=== PATIENT | female | born 1945 | race Caucasian/White ===

== ENCOUNTER 2022-02-24 11:30 | Outpatient (CLI) | payer SELFPAY ==
[2022-02-24 18:11] LABS: Chloride* 95 mmol/L (96-114); Sodium* 137 mmol/L (135-149)
[2022-02-24 18:12] LABS: Potassium* 3.4 mmol/L (3.6-5.1)
[2022-02-24 18:14] LABS: Blood Urea Nitrogen* 22 mg/dL (7-30); Carbon Dioxide* 34 mmol/L (20-32); Cholesterol* 148 mg/dL (90-199); Creatinine* 0.7 mg/dL (0.5-1.5); Estimated Glomerular Filt Rate 89 ml/min
[2022-02-24 18:15] LABS: Calcium* 9.9 mg/dL (8.4-10.6); Glucose* 106 mg/dL (60-115); HDL Cholesterol* 71 mg/dL (>=50); LDL Cholesterol Calculated 52 mg/dL (<100); Triglycerides* 125 mg/dL (40-149)
== END 2022-02-24 11:31 | disposition home or self-care (01) ==
PROVIDERS: PCP Family Medicine; Visit Provider Family Medicine
DX: I10 Essential (primary) hypertension (principal); E78.5 Hyperlipidemia, unspecified; E66.9 Obesity, unspecified
CPT/HCPCS: 80048; 80061

== ENCOUNTER 2022-03-17 10:41 | Outpatient (CLI) | payer MEDICARE, BC, SELFPAY | END 2022-03-17 10:42 | disposition home or self-care (01) | LOC: CT 10:43 | PROVIDERS: PCP Family Medicine; Visit Provider Orthopaedic Surgery Sports Medicine | DX: M19.012 Primary osteoarthritis, left shoulder (principal) | CPT/HCPCS: 73200 ==

== ENCOUNTER 2022-04-08 11:08 | Outpatient (CLI) | payer MEDICARE, BC, SELFPAY ==
[2022-04-08 17:44] LABS: Chloride* 91 mmol/L (96-114)
[2022-04-08 17:45] LABS: Potassium* 3.4 mmol/L (3.6-5.1); Sodium* 134 mmol/L (135-149)
[2022-04-08 17:47] LABS: Creatinine* 0.6 mg/dL (0.5-1.5); Estimated Glomerular Filt Rate 92 ml/min
[2022-04-08 17:48] LABS: Blood Urea Nitrogen* 18 mg/dL (7-30); Carbon Dioxide* 32 mmol/L (20-32); Glucose* 95 mg/dL (60-115)
== END 2022-04-08 11:09 | disposition home or self-care (01) ==
LOC: LONREF 11:09
PROVIDERS: PCP Family Medicine; Visit Provider Family Medicine
DX: Z01.818 Encounter for other preprocedural examination (principal)
CPT/HCPCS: 80048

== ENCOUNTER 2022-04-28 07:21 | Day surgery (SDC) | payer MEDICARE, BC, SELFPAY ==
[2022-04-28] VITALS (25 sets, daily range): BP systolic 99–143; BP diastolic 48–70; PULSE 62–80; RESP 16; TEMP 36.3–36.9; O2SAT 92–100; BMI 35.1
[2022-04-28] MEDS: LACTATED RINGERS 1000 ML 1,000 ML 100 ML IV ×2 (08:00→09:38)
[2022-04-28] MEDS: SODIUM CHLORIDE 0.9 % (FLUSH) 10 ML SYRINGE IVF (08:35)
[2022-04-28] MEDS: OXYCODONE (CR) 10 MG TAB.ER.12H PO (08:45)
[2022-04-28] MEDS: ACETAMINOPHEN 500 MG TABLET 1000 MG PO ×3 (08:45→23:45)
[2022-04-28] MEDS: CELECOXIB 200 MG CAPSULE PO (08:45)
[2022-04-28] MEDS: fentaNYL 100 MCG/2 ML inj IVP (08:50)
[2022-04-28] MEDS: MIDAZOLAM HCL 1 MG/ML inj IVP (08:50)
--- NOTE | 2022-04-28 08:55 | SUR.PREOP ---
TIME?OUT:?0845 PT/RN/MDA?VERIFICATION?OF?SURGICAL?SITE,?PROCEDURE,?AND?CONSENT OBTAINED?PRIOR?TO?INVASIVE?PROCEDURE.
--- NOTE | 2022-04-28 09:13 | CRLHL7_ITS ---
For Patients: As a result of the Cures Act, medical imaging exams and procedure reports are released immediately into your electronic medical record. You may view this report before your referring provider. If you have questions, please contact your health care provider. Indication: Postop Technique: Two views of shoulder Findings/Impression: Hardware from a left reverse total shoulder arthroplasty is in satisfactory position. Bone alignment is normal. No sign of acute fracture. Postop changes are within normal limits. Dictated by Lake Blas MD @ 04/28/2022 12:16:47 PM (Electronically Signed)
[2022-04-28] MEDS: CEFAZOLIN 2 GM in 0.9 % SODIUM CHLORIDE Mini-bag 100 ML IVPB ×3 (09:15→23:44)
[2022-04-28] MEDS: TRANEXAMIC ACID 100 MG/ML INJ 1000 MG IV (09:30)
--- NOTE | 2022-04-28 09:39 | W.PM.NB ---
Nerve Block Nerve Block Time Seen by Provider: 08:51 Date Seen: 04/28/22 Type of block requested by surgeon for post-operative analgesia: supraclavicular Side: left Time out performed: Yes Verification of patient name: Yes Verification of date of : Yes Site marking: site marked Name of person performing procedure: Guille Continuous monitoring Was continuous monitoring of O2 sat, B/P, youth nutritional monitor, recorded every 15 minutes?: Yes Procedure Checklist: sterile prep, needles and gloves Ultrasound guided. Images saved: Yes Medications given in 5ml increments after negative aspiration: Ropivicaine %: 0.5 mL: 20 Needle gauge: 22 Decadron (mg): 10 Precedex (mcg): 25 Patient tolerated procedure well: Yes Block Charges Block Charge (with Pro Fee): Brachial Plexus Use of Ultrasound Machine for Block: Yes- US Guidance/pain block
--- NOTE | 2022-04-28 10:43 | PM.ORPRC ---
Procedure Note Date of procedure: 04/28/22 Procedure: PREOPERATIVE DIAGNOSIS: 1. Left shoulder cuff tear arthropathy 2. Left long head of the biceps tendinopathy and tenosynovitis POSTOPERATIVE DIAGNOSIS: 1. Left shoulder cuff tear arthropathy 2. Left long head of the biceps tendinopathy and tenosynovitis PROCEDURE: 1. Left reverse shoulder arthroplasty. 2. Left long head of biceps open tenodesis SURGEON: Ryan Zamudio MD. DRILLER OPERATOR: Jean FISHER - Of note, a skilled executive assistant was critical for this case to aid in patient positioning, tissue retraction, limb manipulation/positioning, retraction for glenoid exposure, which was challenging, awareness and protection of critical structures, and closure. ANESTHESIA: General plus supraclavicular block IMPLANTS: DJ0 surgical Altivate humeral stem size 12 small shell, short with P2 porous coating vitamin E neutral poly small socket insert RSP glenoid base plate P2 porous coating with 4 perimeter locking screws 32 neutral glenosphere with retaining screw COMPLICATIONS: None evident INDICATIONS: The patient is a pleasant 77-year-old female who has experienced severe left shoulder pain and difficulty with use. Workup included imaging which revealed severe osteoarthrosis along with concern for rotator cuff quality. Physical exam was consistent with associated pain. Given the deformity, the dysfunction, and the pain, and failure of nonoperative management, recommendation was made for surgery. DESCRIPTION OF PROCEDURE: Following a thorough discussion of risks, benefits, and alternatives, consent was obtained and the left shoulder was marked. The patient was brought to the operating room and placed supine on the operating table. Induction of anesthesia was undertaken. 2 g IV Ancef and 1 g tranexamic acid was administered within 1 hr of incision preoperatively. Appropriate time-out was performed identifying proper patient, site, and procedure. The operative extremity was prepped and draped in the appropriate sterile fashion using ChloraPrep after the patient was positioned in the lazy beach chair position with head in neutral alignment and all bony prominences well padded. A longitudinal incision was made for deltopectoral approach. Deltoid was retracted laterally. Cephalic vein was identified and retracted laterally as well. Vein was compromised & thus ligated. The clavipectoral fascia was identified and divided longitudinally staying lateral to the conjoined tendon / coracoid. The conjoined tendon was protected with a blunt Hohmann. The long head of the biceps tendon was identified and the bicipital sheath released. The upper 1/5 of the pectoralis major was also released from its insertion. The long head of the biceps was tenodesed to the pectoralis major tendon. The remaining proximal tendon tissue was excised. The rotator cuff was inspected and found to have good integrity with the subscapularis but poor integrity with a supraspinatus, and a decision for a reverse shoulder arthroplasty was confirmed. The long head of biceps, of note, was significant flattened, thickened, with abundant tenosynovitis. A subscapularis cuff of tissue was left via tenotomy for later repair with the remaining subscapularis released in a subperiosteal fashion with the Bovie. This was tagged for later repair. The 3 sisters were cauterized. The upper subscapularis was released from the capsule with a curved Salvador scissors towards the glenoid. The inferior subscapularis was divided from the capsular tissue on its caudal surface with particular caution for the axillary nerve. This was palpated anterior to the subscapularis both prior to and near the finish of the case. Inferior humeral head osteophytes were excised with caution taken throughout the case with regards to the axillary nerve. The humerus was dislocated, and humeral head cut completed. Then a protector plate was applied. We turned our attention to the glenoid. The humerus was retracted posteriorly. The subscap was protected anteriorly and the labrum/long head biceps origin was excised circumferentially. The capsule was released along the anterior and inferior portions of the glenoid cautiously with a Capps elevator being careful not to penetrate deep. The glenoid had appropriate exposure, and was prepared with the cannulated system with a target of approximately 5? of inferior tilt and neutral anteversion (patient had 8? of retroversion initially). Utilizing the match Point 3D printed guide, the guide pin was placed. The 3D printed jig removed and after placing the guide pin, the tap was placed followed by the glenoid reaming. The real base plate was opened, and inserted, and excellent compression/purchase was achieved with the central screw. Peripheral screws were then drilled, measured, and placed. The glenosphere was then placed consistent with the preoperative plan utilizing the above noted glenosphere. After securing the glenosphere with the locking, torque limited screw, attention was turned back to the humerus. A canal finder was placed followed by various reamers by hand. The real humeral stem was then opened and inserted with excellent metaphyseal fit and stability. Trial poly was placed and the shoulder reduced. Excellent reduction and stability achieved with appropriate tension on the conjoined tendon. At this stage, trial implants were removed, and the real implants inserted and the shoulder reduced. A 3 minute Betadine soak was performed followed by a thorough irrigation with normal saline. Subscapularis was repaired with #1 PDS to the cuff of tissue on the lesser tuberosity. Excellent reapproximation of tissue achieved. Hemostasis was found to be appropriate. The deltopectoral interval was reapproximated with 0 Vicryl, subcutaneous and subcuticular closure was then performed with number 2-0 Vicryl and 4-0 Monocryl, respectively. A skilled executive assistant was critical for this case to aid in patient positioning, tissue retraction, limb manipulation/positioning, retraction for glenoid exposure, which was challenging, awareness and protection of critical structures, and closure. PLAN: 1. Sling at all times for the operative upper extremity. 2. AROM of elbow, forearm, wrist, and digits as tolerated. 3. PT/OT consults for education and assistance. 4. Social consult for discharge planning. 5. 23 hr perioperative antibiotics. 6. Early ambulation, and SCDs for DVT prophylaxis. 7. Admit to the hospital for the above 8. Analgesics p.r.n.
--- NOTE | 2022-04-28 11:10 | W.ANESCHARGE ---
Anesthesia Charges Start Date/Time Anesthesia Start Date: 04/28/22 Anesthesia Start Time: 09:04 Stop Date/Time Anesthesia Stop Date: 04/28/22 Anesthesia Stop Time: 11:11 Summary Emergency: No Extremes of Age: Over 69-CPT 41208
--- NOTE | 2022-04-28 11:42 | W.ANESCHARGE ---
Anesthesia Charges Start Date/Time Anesthesia Start Date: 04/28/22 Anesthesia Start Time: 09:04 Stop Date/Time Anesthesia Stop Date: 04/28/22 Anesthesia Stop Time: 11:11 Summary Emergency: No Extremes of Age: Over 69-CPT 43539
--- NOTE | 2022-04-28 14:25 | P.IMCN_ITS ---
Date of Consult Consult date: 04/28/22 Requesting Physician: Orthopedics Primary Care Provider: Reginaldo Danielson MD Consult Narrative Reason for consult: Reverse left shoulder total arthroplasty Narrative: HOSPITALIST CONSULT Hospital Day # 1 Post Op Day # 0 PROCEDURE: 1. Left reverse shoulder arthroplasty. 2. Left long head of biceps open tenodesis SURGEON: Ryan Zamudio MD. ANESTHESIA: General plus supraclavicular block COMPLICATIONS: None evident The hospital medicine team was asked by Orthopedic team to manage the patient's hypertension. There have been no perioperative concerns or questions. I updated the [facility] histories and Medications and Allergies in the Expanse tabs REVIEW OF SYSTEMS: 12-point ROS completed with patient and negative unless otherwise stated in HPI or below. PHYSICAL EXAM: CODE STATUS: FULL CODE CONSTITUTIONAL: Groggy but smiling and answers my questions. VITAL SIGNS: see record. HEENT: Normocephalic, atraumatic. PERRL, EOMI, conjunctivae pink, no scleral icterus. Ears and nose externally normal. Pharynx normal. NECK: No JVD. No carotid bruit, no thyromegaly, no adenopathy. CHEST: Clear to auscultation bilaterally HEART: No harsh murmurs. S1/S2. ABDOMEN: Flat, soft, nontender. Normal bowel sounds. Moderately obese. EXTREMITIES: No edema. MUSCULOSKELETAL: Left short of surgical dressing and continuous icing in place. Human Resources Compliance Manager strength normal in the left extremity NEURO: Cranial nerves intact. Normal affect. No gross deficits. Speech intelligible. SKIN: No rashes, petechiae, concerning changes PSYCHIATRIC: Euthymic. INVESTIGATIONS: EMR Reviewed DISPOSITION: MedSurg Recovery; Discharge tomorrow DVT: No specific VTE prophylaxis necessary GI: PO intake PFSH PFS Medical History Hearing loss Hyperlipidemia Hypertension Obesity (10/13/11) Surgical History History of breast biopsy (10/13/11) Status post reverse total shoulder replacement Family History Father CHF (congestive heart failure) Mother Colon cancer Sister Liver cancer Brother CHF (congestive heart failure) Social History (Updated 04/28/22 @ 14:30 by Charmaine Oliver MD) Narrative: . 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 Nonsmoker. Rare holiday wine. For adult children. [place] her is her emergency contact. Smoking Status: Never smoker How often do you have a drink containing alcohol: monthly or less Alcohol type: beer and wine How many standard drinks containing alcohol do you have on a typical day: 1 or 2 How often do you have six or more drinks on one occasion: Never AUDIT-C Alcohol total score: 1 Non-prescribed substance use: denies use Caffeine: Yes (coffee, 1-2 cups/day) service: No Meds Home Medications and Allergies Home Medications Medication Instructions Recorded Confirmed Type aspirin 81 mg tablet,delayed 81 mg PO DAILY 02/07/22 04/28/22 History release acetaminophen 500 mg tablet 1,000 mg PO Q6H PRN 04/08/22 04/28/22 History (Acetaminophen Extra Strength) atenolol 50 mg tablet 50 mg PO DAILY 04/25/22 04/28/22 History atorvastatin 20 mg tablet 20 mg PO HS 04/25/22 04/28/22 History chlorthalidone 25 mg tablet 25 mg PO DAILY 04/25/22 04/28/22 History Allergies Allergy/AdvReac Type Severity Reaction Status Date / Time No Known Drug Allergies Allergy Verified 04/28/22 07:49 Exam Const: Vital Signs, click to edit/add: Vital Signs - 24 hr 04/28/22 07:59 04/28/22 08:45 04/28/22 08:50 Temperature 98 F Pulse Rate 63 67 62 Pulse Rate [Left P ulse Oximeter] Respiratory Rate 16 16 16 Blood Pressure 143/68 H 108/51 L 109/51 L Blood Pressure [Ri ght Arm] Pulse Oximetry 95 97 97 Oxygen Delivery Me thod Room Air Nasal Cannula Nasal Cannula Oxygen Flow Rate 2 2 04/28/22 11:07 04/28/22 11:10 04/28/22 11:35 Temperature 98.5 F 98.3 F Pulse Rate 77 76 80 Pulse Rate [Left P ulse Oximeter] Respiratory Rate 16 16 16 Blood Pressure 139/63 122/58 L 111/51 L Blood Pressure [Ri ght Arm] Pulse Oximetry 95 96 93 Oxygen Delivery Me thod OxyMask OxyMask Room Air Oxygen Flow Rate 4 4 04/28/22 11:15 04/28/22 11:20 04/28/22 11:25 Temperature Pulse Rate 77 77 77 Pulse Rate [Left P ulse Oximeter] Respiratory Rate 16 16 16 Blood Pressure 111/48 L 114/54 L 113/53 L Blood Pressure [Ri ght Arm] Pulse Oximetry 95 94 95 Oxygen Delivery Me thod OxyMask OxyMask OxyMask Oxygen Flow Rate 4 4 4 04/28/22 11:30 04/28/22 11:40 04/28/22 11:44 Temperature Pulse Rate 74 75 73 Pulse Rate [Left P ulse Oximeter] Respiratory Rate 16 16 16 Blood Pressure 110/51 L 107/52 L 110/54 L Blood Pressure [Ri ght Arm] Pulse Oximetry 96 94 96 Oxygen Delivery Me thod OxyMask OxyMask OxyMask Oxygen Flow Rate 4 4 4 04/28/22 11:50 04/28/22 12:00 04/28/22 12:15 Temperature 97.7 F Pulse Rate 73 Pulse Rate [Left P ulse Oximeter] 70 71 Respiratory Rate 16 16 16 Blood Pressure Blood Pressure [Ri ght Arm] 126/58 L 117/58 L 113/56 L Pulse Oximetry 92 93 Oxygen Delivery Me thod Nasal Cannula Nasal Cannula Nasal Cannula Oxygen Flow Rate 2 2 2 04/28/22 12:30 04/28/22 12:45 04/28/22 13:00 Temperature Pulse Rate Pulse Rate [Left P ulse Oximeter] 69 75 67 Respiratory Rate 16 16 16 Blood Pressure Blood Pressure [Ri ght Arm] 110/56 L 106/52 L 116/58 L Pulse Oximetry 93 95 94 Oxygen Delivery Me thod Nasal Cannula Nasal Cannula Nasal Cannula Oxygen Flow Rate 2 2 2 04/28/22 13:30 04/28/22 14:00 Temperature Pulse Rate Pulse Rate [Left P ulse Oximeter] 67 68 Respiratory Rate 16 16 Blood Pressure Blood Pressure [Ri ght Arm] 115/55 L 99/56 L Pulse Oximetry 94 93 Oxygen Delivery Me thod Nasal Cannula Nasal Cannula Oxygen Flow Rate 2 2 Assessment and Plan Assessment and plan (1) Status post reverse total shoulder replacement: Problem comment: April 2022. Hospital medicine team is happy to follow this patient through to discharge. There have been no concerns perioperatively. I expect a routine course with discharge tomorrow. No specific VTE prophylaxis recommended. Status: Acute (2) Hypertension: Problem comment: Will hold antihypertensives unless indicated. Status: Acute
[2022-04-28] MEDS: LACTATED RINGERS 1000 ML 1,000 ML 75 ML IV (20:00)
[2022-04-28] MEDS: ATORVASTATIN 10 MG TABLET 20 MG PO (20:15)
[2022-04-28] MEDS: SENNOSIDES 1 TAB TABLET 2 TAB PO (20:15)
--- NOTE | 2022-04-28 22:31 | PC.NURSE ---
Shift [id number]- Patient states no pain throughout shift. She does notice some return of sensation this evening. She is up with assist of 1, walker and gait belt and tolerates well. Appetite is intact and she tolerates advancing diet and is voiding. Cryocuff in place. She is up to chair this evening.
[2022-04-29 03:00] VITALS: BP 130/60; PULSE 73; RESP 16; TEMP 36.4; O2SAT 94
--- NOTE | 2022-04-29 05:38 | PC.NURSE ---
Pt is doing well. Ambulated with assist of 1, walker and GB. pulse and neuro present in the left arm. Cryo cuff applied, denied any pain to the shoulder. Able void more than 500ml of urine. Saline locked. Resumed regular diet and doing well with that. No other post op complications noted.
[2022-04-29] MEDS: ACETAMINOPHEN 500 MG TABLET 1000 MG PO ×2 (06:16→11:56)
[2022-04-29 06:42] LABS: Hematocrit 29.6 % (33.0-51.0); Hemoglobin* 10.4 gm/dL (12.0-16.0); Mean Corpuscular HGB Conc 35 gm/dL (32-36); Mean Corpuscular Hemoglobin 31 pg (26-34); Mean Corpuscular Volume 88 fL (80-100); Platelet Count* 128 K/uL (140-440); Red Blood Count 3.38 m/uL (4.00-5.20); White Blood Count* 4.93 K/uL (4.50-11.00)
[2022-04-29 06:47] LABS: Slide Review Reflex No
[2022-04-29 06:59] LABS: Sodium* 129 mmol/L (135-149)
[2022-04-29 07:02] LABS: Creatinine* 0.6 mg/dL (0.5-1.5); Estimated Glomerular Filt Rate 92 ml/min
[2022-04-29 07:03] LABS: Blood Urea Nitrogen* 18 mg/dL (7-30)
[2022-04-29 07:05] LABS: Potassium* 2.7 mmol/L (3.6-5.1)
[2022-04-29] MEDS: CEFAZOLIN 2 GM in 0.9 % SODIUM CHLORIDE Mini-bag 100 ML IVPB (07:20)
--- NOTE | 2022-04-29 07:44 | PM.ORPN ---
Subjective Subjective Date Seen: 04/29/22 Principal diagnosis: Status postop day 1 right RTSA and long head biceps tenodesis Interval history: Patient reports doing well. No acute events over night. Pain managed with scheduled /PRN medications and ice. DVT prophylaxis bilateral knee high Raheel stockings, and SCDs. Denies fevers, chills, aches, N/V, CP, SOB/PATTERSON, tachycardia, or lightheadedness. Passing gas. Ortho Exam Narrative Exam Narrative: -Patient appears comfortable in recliner; no apparent acute distress; daughter present -Alert and oriented times 3 -Operative shoulder mildly swollen; soft, supple tissues; no obvious erythema. Ecchymosis minimal. Warmth appropriate -Surgical dressing clean, dry, intact; no obvious drainage, no erythematous streaking peripheral to the bandage -Bilateral calves soft and supple; no significant swelling, edema, tenderness, erythema, discoloration, warmth, or palpable cords -2+ radial pulse, intact dermatomes and myotomes distally (5/5 strength). Specifically axillary nerve intact Const Vital Signs, click to edit/add: Vital Signs - 24 hr 04/28/22 07:59 04/28/22 08:45 04/28/22 08:50 Temperature 98 F Pulse Rate 63 67 62 Pulse Rate [Left Pulse Oximeter] Respiratory Rate 16 16 16 Blood Pressure 143/68 H 108/51 L 109/51 L Blood Pressure [Right Arm] Pulse Oximetry 95 97 97 Oxygen Delivery Method Room Air Nasal Cannula Nasal Cannula Oxygen Flow Rate 2 2 04/28/22 11:07 04/28/22 11:10 04/28/22 11:35 Temperature 98.5 F 98.3 F Pulse Rate 77 76 80 Pulse Rate [Left Pulse Oximeter] Respiratory Rate 16 16 16 Blood Pressure 139/63 122/58 L 111/51 L Blood Pressure [Right Arm] Pulse Oximetry 95 96 93 Oxygen Delivery Method OxyMask OxyMask Room Air Oxygen Flow Rate 4 4 04/28/22 11:15 04/28/22 11:20 04/28/22 11:25 Temperature Pulse Rate 77 77 77 Pulse Rate [Left Pulse Oximeter] Respiratory Rate 16 16 16 Blood Pressure 111/48 L 114/54 L 113/53 L Blood Pressure [Right Arm] Pulse Oximetry 95 94 95 Oxygen Delivery Method OxyMask OxyMask OxyMask Oxygen Flow Rate 4 4 4 04/28/22 11:30 04/28/22 11:40 04/28/22 11:44 Temperature Pulse Rate 74 75 73 Pulse Rate [Left Pulse Oximeter] Respiratory Rate 16 16 16 Blood Pressure 110/51 L 107/52 L 110/54 L Blood Pressure [Right Arm] Pulse Oximetry 96 94 96 Oxygen Delivery Method OxyMask OxyMask OxyMask Oxygen Flow Rate 4 4 4 04/28/22 11:50 04/28/22 12:00 04/28/22 12:15 Temperature 97.7 F Pulse Rate 73 Pulse Rate [Left Pulse Oximeter] 70 71 Respiratory Rate 16 16 16 Blood Pressure Blood Pressure [Right Arm] 126/58 L 117/58 L 113/56 L Pulse Oximetry 92 93 Oxygen Delivery Method Nasal Cannula Nasal Cannula Nasal Cannula Oxygen Flow Rate 2 2 2 04/28/22 12:30 04/28/22 12:45 04/28/22 13:00 Temperature Pulse Rate Pulse Rate [Left Pulse Oximeter] 69 75 67 Respiratory Rate 16 16 16 Blood Pressure Blood Pressure [Right Arm] 110/56 L 106/52 L 116/58 L Pulse Oximetry 93 95 94 Oxygen Delivery Method Nasal Cannula Nasal Cannula Nasal Cannula Oxygen Flow Rate 2 2 2 04/28/22 13:30 04/28/22 14:00 04/28/22 15:00 Temperature 97.3 F L Pulse Rate Pulse Rate [Left Pulse Oximeter] 67 68 73 Respiratory Rate 16 16 16 Blood Pressure Blood Pressure [Right Arm] 115/55 L 99/56 L 106/60 Pulse Oximetry 94 93 93 Oxygen Delivery Method Nasal Cannula Nasal Cannula Room Air Oxygen Flow Rate 2 2 04/28/22 16:00 04/28/22 17:00 04/28/22 18:00 Temperature 98.1 F Pulse Rate Pulse Rate [Left Pulse Oximeter] 78 78 76 Respiratory Rate 16 16 16 Blood Pressure Blood Pressure [Right Arm] 126/69 126/70 102/51 L Pulse Oximetry 96 96 100 Oxygen Delivery Method Nasal Cannula Room Air Room Air Oxygen Flow Rate 0.5 04/28/22 23:00 04/28/22 23:00 04/29/22 03:00 Temperature 97.4 F L 97.6 F Pulse Rate Pulse Rate [Left Pulse Oximeter] 75 73 Respiratory Rate 16 16 16 Blood Pressure Blood Pressure [Right Arm] 121/59 L 130/60 Pulse Oximetry 93 94 Oxygen Delivery Method Room Air Room Air Oxygen Flow Rate Assessment and Plan Assessment and plan (1) Status post reverse total shoulder replacement: Problem details: POD 1 right reverse total shoulder arthroplasty and long head biceps tenodesis Status: Acute (2) Hypertension: Problem details: Will hold antihypertensives unless indicated. Status: Acute (3) Hypokalemia: Problem details: Hospitalist noted this critical value at 2.7; preoperative labs show normal low K+. Hospitalist treating with oral potassium at this time. Status: Acute (4) Hyponatremia: Status: Acute (5) Adverse effects of medication: Problem details: Hypokalemia and hyponatremia due to chlorthalidone Status: Acute (6) Hyperlipidemia: Status: Acute (7) Hearing loss: Status: Acute (8) Obesity: Status: Acute Plan - Complete 23 hour perioperative antibiotics. - PT/OT consult for education and assistance. - Social work consult for discharge planning - Prescribed analgesics as needed - DVT prophylaxis: Bilateral knee high Raheel Hose stockings and SCDs - Anticipation is for discharge to home with spouse 04/29/2022 if the patient remains medically stable, pain is controlled, and they are safe with mobilization. - Discharge will be delayed for K+ replacement treatment, and reaquisition of K+ lab value in the early afternoon.
[2022-04-29] MEDS: SENNOSIDES 1 TAB TABLET 2 TAB PO (08:34)
[2022-04-29] MEDS: POTASSIUM BICARB 25 MEQ EFFERVESCENT TAB PO ×2 (08:34→10:15)
[2022-04-29] MEDS: SODIUM CHLORIDE 0.9 % (FLUSH) 10 ML SYRINGE 5 ML IVF (08:37)
[2022-04-29 08:40] VITALS: BP 136/58; PULSE 71; RESP 16; TEMP 36.8; O2SAT 97
[2022-04-29 11:01] VITALS: BP 129/67; PULSE 73; RESP 16; TEMP 37; O2SAT 95
--- NOTE | 2022-04-29 11:07 | PC.SOCIAL ---
Discharge plan: Social work met with pt. and daughter to discuss discharge plan. Pt. says that she has daughter and spouse at home to care for her as needed. Pt. says she has no concerns about home accessibility, as there are no steps and everything is within reach on the first level of the home. Pt. has no further concerns at this time. Pt. is aware that she can reach out to the hospital with any future concerns.
[2022-04-29] MEDS: POTASSIUM CHLORIDE 10 MEQ CAPSULE ER 40 MEQ PO (12:16)
--- NOTE | 2022-04-29 12:38 | PM.DS1 ---
DS: Providers Provider Date Seen: 04/29/22 Date of admission: Med/Surg Recovery 04/28/2022 Primary care physician: Reginaldo Danielson MD Consults: 04/28/22 12:26 Consult to Occupational Therapy [CONS] Routine Comment: Reason(s) for OT Consult:: Evaluate and Treat Any Restrictions?:: See Comment Comment: ROM elbow, forearm, wrist, digits PRN Shoulder pendulums okay No active shoulder ROM Consult to Physical Therapy [CONS] Routine Comment: Reason(s) for PT Consult:: Evaluate and Treat Any Restrictions?:: No Restrictions Consult to Physician [CONS] Routine Comment: Consulting Provider: Hospitalists Has provider been notified: No Consult to Senior Tax Specialist [CONS] Routine Comment: Reason for Consult:: Discharge Planning Needs Attending Physician on discharge: Ryan Zamudio MD Date of Discharge: 04/29/22 DS: Diagnosis Discharge Diagnosis (1) Status post reverse total shoulder replacement: Status: Acute Problem details: POD 1 right reverse total shoulder arthroplasty and long head biceps tenodesis (2) Hypokalemia: Status: Acute Problem details: Hospitalist noted this critical value at 2.7; preoperative labs show normal low K+. Hospitalist treating with oral potassium at this time. With potassium replacement, patient's potassium level returned to normal at 3.1. DS: Summary Hospital Course Hospital Course: The patient has a history of left shoulder osteoarthritis, primary, severe. After appropriate preoperative evaluation, the patient underwent left reverse total shoulder arthroplasty and long head biceps tenodesis. Postoperatively they progressed to PT/OT and were felt ready and prepared for discharge to home with appropriate pain medication and anticoagulation medications. Medically, noted hypokalemia which was treated with oral potassium replacement. She responded well to the treatment, potassium return to normal level at 3.1. She was discharged on potassium replacement medication, and encouraged to follow-up with her PCP. Status at Discharge Overall status at discharge: patient is progressing back to baseline Time Spent with Patient Time attestation: Total time spent providing and/or coordinating discharge services: Exam Const: Vital Signs, click to edit/add: Vital Signs - 24 hr 04/28/22 12:45 04/28/22 13:00 04/28/22 13:30 Temperature Pulse Rate [Left P ulse Oximeter] 75 67 67 Respiratory Rate 16 16 16 Blood Pressure [Ri ght Arm] 106/52 L 116/58 L 115/55 L Pulse Oximetry 95 94 94 Oxygen Delivery Me thod Nasal Cannula Nasal Cannula Nasal Cannula Oxygen Flow Rate 2 2 2 04/28/22 14:00 04/28/22 15:00 04/28/22 16:00 Temperature 97.3 F L Pulse Rate [Left P ulse Oximeter] 68 73 78 Respiratory Rate 16 16 16 Blood Pressure [Ri ght Arm] 99/56 L 106/60 126/69 Pulse Oximetry 93 93 96 Oxygen Delivery Me thod Nasal Cannula Room Air Nasal Cannula Oxygen Flow Rate 2 0.5 04/28/22 17:00 04/28/22 18:00 04/28/22 23:00 Temperature 98.1 F Pulse Rate [Left P ulse Oximeter] 78 76 Respiratory Rate 16 16 16 Blood Pressure [Ri ght Arm] 126/70 102/51 L Pulse Oximetry 96 100 Oxygen Delivery Me thod Room Air Room Air Oxygen Flow Rate 04/28/22 23:00 04/29/22 03:00 04/29/22 08:40 Temperature 97.4 F L 97.6 F 98.3 F Pulse Rate [Left P ulse Oximeter] 75 73 71 Respiratory Rate 16 16 16 Blood Pressure [Ri ght Arm] 121/59 L 130/60 136/58 L Pulse Oximetry 93 94 97 Oxygen Delivery Me thod Room Air Room Air Room Air Oxygen Flow Rate 04/29/22 11:01 Temperature 98.6 F Pulse Rate [Left P ulse Oximeter] 73 Respiratory Rate 16 Blood Pressure [Ri ght Arm] 129/67 Pulse Oximetry 95 Oxygen Delivery Me thod Room Air Oxygen Flow Rate DS: Data Data Completed and Pending Labs on day of discharge: Labs from last 24 hours 04/29/22 04/29/22 04/29/22 12:28 06:01 06:01 WBC 4.93 RBC 3.38 L Hgb 10.4 L Hct 29.6 L MCV 88 MCH 31 MCHC 35 Plt Count 128 L Sodium 129 L Potassium Pending 2.7 L* BUN 18 Creatinine 0.6 Estimated Creat Clear 33.30 Estimated GFR 92 Discharge Plan Discharge Disposition: Home, Self-Care Discharging Surgeon: Ryan Zamudio Follow-Up Appointment: 1 week PO with JAE Prescriptions: New sennosides-docusate sodium [Senna-S] 8.6-50 mg tablet 1 - 4 tab-cap PO BID PRN (Reason: constipation) Qty: 60 0RF Rx Instructions: Hold medication if experiencing loose stools. oxycodone 5 mg tablet 2.5 - 5 mg PO Q4-6H MDD 6 PRN (Reason: pain) Qty: 30 0RF Rx Instructions: Take as needed for postop pain: 2.5mg mild pain, 5mg moderate-severe pain; wean as tolerated. potassium chloride 10 mEq capsule, extended release 10 meq PO DAILY Qty: 30 2RF Continued acetaminophen [Acetaminophen Extra Strength] 500 mg tablet 1,000 mg PO Q6H PRN atorvastatin 20 mg tablet 20 mg PO HS atenolol 50 mg tablet 50 mg PO DAILY aspirin 81 mg tablet,delayed release (DR/EC) 81 mg PO DAILY Discontinued chlorthalidone 25 mg tablet 25 mg PO DAILY Activity Level: Activity as Tolerated and No Weight Bearing Activity Detail: No weight-bearing right upper extremity; sling at all times unless bathing, and to perform gentle elbow range of motion and pendulums. No lifting above coffee cup in weight right upper extremity Discharge Diet: Heart Healthy (2 gm sodium, low fat) Patient Instructions: Potassium Chloride (By mouth), Oxycodone, Rapid Release (By mouth), Senna (By mouth), Shoulder Arthroplasty (DC) Additional Instructions: Wound: ?Do not remove original dressing; we will remove this at first postop visit in 1 week. Only remove dressing if integrity is in question. ?No immersing wound in water; showering okay; light scrub with your hand and body soap, rinse, dab dry ?Sutures are under the skin, will dissolve; allow surgical glue to come off naturally; do not scrub the wound or apply ointments/lotions ?Call our office with any redness that streaks, excessive drainage from the wound, or wound gapping. Ice/Elevate: ?Ice as needed for swelling and discomfort (cryocuff or ice pack); elevate hand/forearm about heart if possible HIRAM socks: ?Wear for 1 month, remove for 1 hour 3 times per day ?These are frustrating to take on/off, but are important for blood clot prevention for 1 month after surgery even though this was an upper extremity surgery. Driving: ?Do not drive while taking narcotic pain medication ?Anticipate a few weeks of no driving if you feel uncomfortable driving with one arm Dental: ?No elective dental work for 6 months post-op. If there is an urgent/emergent dental need, contact our office for an antibiotic prescription. Smoking/Alcohol: ?Do not smoke; do no drink alcohol especially when taking postoperative oral narcotic medication Seek Care from you Primary Care Provider if you experience the following issues in the postoperative phase and beyond: ?Bacterial infections such as: pneumonia, bacterial skin infection (cellulitis), UTI, high fever, chills unrelated to the operative body part - call your primary care physician urgently for treatment in hopes to protect your health and the metal implant. Referrals: ?PT, OT per patient preference - evaluate treat [reverse/anatomic] total shoulder arthroplasty protocol (ROM, ADLs) Follow up: ?Ortho surgeon follow-up in 6 weeks; repeat radiographs three views operative shoulder ?JAE visit in 1 week *If there are any acute concerns regarding your surgery, please call our orthopedic clinic ([phone]) Forms: Work/Release Restrictions Follow-up: [facility] [Provider Group] - 05/13/22 9:00 am Reginaldo Danielson MD [Primary Care Provider] - 05/06/22 12:45 pm (Lab draw 05/06 at 11:30am) Orion Ferrara PA-C [Physician Photogrammetric Engineer] - 05/06/22 1:30 pm ([facility]) Discharge Orders: Discharge Order (Routine); Ordered 04/29/22 Ordered By: Orion Ferrara
[2022-04-29 12:48] LABS: Potassium* 3.1 mmol/L (3.6-5.1)
--- NOTE | 2022-04-29 14:28 | PC.NURSE ---
Patient was discharged. PIV was taken out and catheter intact. Follow up appointments were made for 05/06 with lab, Dr. Danielson, and Orion. Patient had taken 2 of the potassium bicarbonate (4 tabs were ordered: 1 q2h), after the first 2 tabs, patient became very flushed. Pharmacy thought maybe it was from the dye in the tablets. MD was notified and decided to switch to Potassium chloride due to this reason. Recheck potassium was 3.1. Vital signs were within normal limits. Cryo cuff present to incision. Incision dressing was clean, dry and intact. CWMS were all within normal limits. Lung sounds clear. Passing flatus. Voiding without difficulty. Only taking Tylenol for pain. Denies nausea and tolerating PO diet. HIRAM hose demonstration provided to daughter. All questions answered. Patient left via wheelchair with family.
--- NOTE | 2022-04-30 14:18 | PM.DS1 ---
DS: Providers Provider Time Seen by Provider: 11:00 Date Seen: 04/29/22 Date of admission: 04/28/2022 Primary care physician: Reginaldo Danielson MD Admitting Clinician: Ryan Zamudio MD Consults: 04/28/22 12:26 Consult to Occupational Therapy [CONS] Routine Comment: Reason(s) for OT Consult:: Evaluate and Treat Any Restrictions?:: See Comment Comment: ROM elbow, forearm, wrist, digits PRN Shoulder pendulums okay No active shoulder ROM Consult to Physical Therapy [CONS] Routine Comment: Reason(s) for PT Consult:: Evaluate and Treat Any Restrictions?:: No Restrictions Consult to Physician [CONS] Routine Comment: Consulting Provider: Hospitalists Has provider been notified: No Consult to Precision Assembly Inspector [CONS] Routine Comment: Reason for Consult:: Discharge Planning Needs Attending Physician on discharge: Ryan Zamudio MD Date of Discharge: 04/29/22 DS: Diagnosis Discharge Diagnosis (1) Status post reverse total shoulder replacement: Status: Acute Problem details: POD 1 right reverse total shoulder arthroplasty and long head biceps tenodesis (2) Hypertension: Status: Acute Problem details: Will hold antihypertensives unless indicated. (3) Adverse effects of medication: Status: Acute Problem details: Hypokalemia and hyponatremia due to chlorthalidone (4) Hyponatremia: Status: Acute (5) Hypokalemia: Status: Acute Problem details: Hospitalist noted this critical value at 2.7; preoperative labs show normal low K+. Hospitalist treating with oral potassium at this time. With potassium replacement, patient's potassium level returned to normal at 3.1. (6) Hyperlipidemia: Status: Acute (7) Hearing loss: Status: Acute (8) Obesity: Status: Acute DS: Summary Hospital Course Hospital Course: The patient has a history of left shoulder osteoarthritis, primary, severe. After appropriate preoperative evaluation, the patient underwent left reverse total shoulder arthroplasty and long head biceps tenodesis. Postoperatively they progressed to PT/OT and were felt ready and prepared for discharge to home with appropriate pain medication and anticoagulation medications. Medically, noted hypokalemia which was treated with oral potassium replacement. She responded well to the treatment, potassium return to normal level at 3.1. She was discharged on potassium replacement medication, and encouraged to follow-up with her PCP. Time Spent with Patient Time attestation: Total time spent providing and/or coordinating discharge services: Time spent: Greater than 30 minutes Exam Narrative: Exam Narrative: HEENT: Normocephalic, atraumatic. PERRL, EOMI, conjunctivae pink, no scleral icterus. Ears and nose externally normal. Pharynx normal. NECK: No JVD. No carotid bruit, no thyromegaly, no adenopathy. CHEST:? Clear to auscultation bilaterally HEART: No harsh murmurs. S1/S2. ABDOMEN: Flat, soft, nontender. Normal bowel sounds. Moderately obese. EXTREMITIES:? No edema. MUSCULOSKELETAL:? Left short of surgical dressing and continuous icing in place.? School Speech Therapist strength normal in the left extremity NEURO: Cranial nerves intact.? Normal affect. No gross deficits. Speech intelligible. SKIN:? No rashes, petechiae, concerning changes PSYCHIATRIC: Euthymic. Const: Documenting provider has reviewed patient's vital signs: yes Discharge Plan Discharge Disposition: Home, Self-Care Discharging Surgeon: Ryan Zamudio Follow-Up Appointment: 1 week PO with JAE Prescriptions: New sennosides-docusate sodium [Senna-S] 8.6-50 mg tablet 1 - 4 tab-cap PO BID PRN (Reason: constipation) Qty: 60 0RF Rx Instructions: Hold medication if experiencing loose stools. oxycodone 5 mg tablet 2.5 - 5 mg PO Q4-6H MDD 6 PRN (Reason: pain) Qty: 30 0RF Rx Instructions: Take as needed for postop pain: 2.5mg mild pain, 5mg moderate-severe pain; wean as tolerated. potassium chloride 10 mEq capsule, extended release 10 meq PO DAILY Qty: 30 2RF Continued acetaminophen [Acetaminophen Extra Strength] 500 mg tablet 1,000 mg PO Q6H PRN atorvastatin 20 mg tablet 20 mg PO HS atenolol 50 mg tablet 50 mg PO DAILY aspirin 81 mg tablet,delayed release (DR/EC) 81 mg PO DAILY Discontinued chlorthalidone 25 mg tablet 25 mg PO DAILY Activity Level: Activity as Tolerated and No Weight Bearing Activity Detail: No weight-bearing right upper extremity; sling at all times unless bathing, and to perform gentle elbow range of motion and pendulums. No lifting above coffee cup in weight right upper extremity Discharge Diet: Heart Healthy (2 gm sodium, low fat) Patient Instructions: Potassium Chloride (By mouth), Oxycodone, Rapid Release (By mouth), Senna (By mouth), Shoulder Arthroplasty (DC) Additional Instructions: Wound: ?Do not remove original dressing; we will remove this at first postop visit in 1 week. Only remove dressing if integrity is in question. ?No immersing wound in water; showering okay; light scrub with your hand and body soap, rinse, dab dry ?Sutures are under the skin, will dissolve; allow surgical glue to come off naturally; do not scrub the wound or apply ointments/lotions ?Call our office with any redness that streaks, excessive drainage from the wound, or wound gapping. Ice/Elevate: ?Ice as needed for swelling and discomfort (cryocuff or ice pack); elevate hand/forearm about heart if possible HIRAM socks: ?Wear for 1 month, remove for 1 hour 3 times per day ?These are frustrating to take on/off, but are important for blood clot prevention for 1 month after surgery even though this was an upper extremity surgery. Driving: ?Do not drive while taking narcotic pain medication ?Anticipate a few weeks of no driving if you feel uncomfortable driving with one arm Dental: ?No elective dental work for 6 months post-op. If there is an urgent/emergent dental need, contact our office for an antibiotic prescription. Smoking/Alcohol: ?Do not smoke; do no drink alcohol especially when taking postoperative oral narcotic medication Seek Care from you Primary Care Provider if you experience the following issues in the postoperative phase and beyond: ?Bacterial infections such as: pneumonia, bacterial skin infection (cellulitis), UTI, high fever, chills unrelated to the operative body part - call your primary care physician urgently for treatment in hopes to protect your health and the metal implant. Referrals: ?PT, OT per patient preference - evaluate treat [reverse/anatomic] total shoulder arthroplasty protocol (ROM, ADLs) Follow up: ?Ortho surgeon follow-up in 6 weeks; repeat radiographs three views operative shoulder ?PA-C visit in 1 week *If there are any acute concerns regarding your surgery, please call our orthopedic clinic ([phone]) Forms: Work/Release Restrictions Follow-up: [facility] [Provider Group] - 05/13/22 9:00 am Reginaldo Danielson MD [Primary Care Provider] - 05/06/22 12:45 pm (Lab draw 05/06 at 11:30am) Orion Ferrara PA-C [Physician Field Artillery Fire Control Man] - 05/06/22 1:30 pm ([facility]) Discharge Orders: Discharge Order (Routine); Ordered 04/29/22 Ordered By: Orion Ferrara
== END 2022-04-29 14:30 | disposition home or self-care (01) ==
LOC: OR 07:22 → MEDSURG 14:33
PROVIDERS: Internal Medicine; PCP Family Medicine; Visit Provider Orthopaedic Surgery Sports Medicine
PROC: 0RRJ0JZ Replacement of Right Shoulder Joint with Synthetic Substitute, Open Approach (ICD-10-PCS; CPT 23472; principal; 2022-04-28 09:00)
DX: M75.102 Unspecified rotator cuff tear or rupture of left shoulder, not specified as traumatic (principal); M75.22 Bicipital tendinitis, left shoulder; M19.012 Primary osteoarthritis, left shoulder; M25.512 Pain in left shoulder; I10 Essential (primary) hypertension; E66.9 Obesity, unspecified; E87.6 Hypokalemia; E87.1 Hypo-osmolality and hyponatremia; T50.2X5A Adverse effect of carbonic-anhydrase inhibitors, benzothiadiazides and other diuretics, initial encounter; E78.5 Hyperlipidemia, unspecified; H91.90 Unspecified hearing loss, unspecified ear; Z68.35 Body mass index [BMI] 35.0-35.9, adult
CPT/HCPCS: 23472; 23430; 01638; 36415; 64415; 73030; 76942; 82565; 84132; 84295; 84520; 85027; 97110; 97116; 97161; 97165; 97535; 99100; 99211; A9270; C1713; C1776; J0330; J0690; J1100; J2250; J2370; J2405; J2704; J2795; J3010; J7120

== ENCOUNTER 2022-08-12 11:30 | Outpatient (RCR) | payer MEDICARE, BC, SELFPAY ==
--- NOTE | 2022-04-23 14:16 | OT.OPGNE ---
OT Outpatient General/Neuro Eval OT Outpatient General/Neuro Eval Start: 04/23/22 13:43 Freq: Status: Active Protocol: Document 04/23/22 13:47 SMW (Rec: 04/23/22 14:09 CARLOSW [id number]) E-signed By Hermila Mixon OT OT Outpatient Evaluation Details Type Type Eval Complexity Low Insurance Information Insurance Information Insurance Information Blue [employer] Outpatient History/Precautions Medical/Functional History Medical History Reviewed Yes Prior Level of Function/Mobility I in ADLS and mobility without an assistive device. Current Condition Treatment Diagnosis LTSA pre op Social History Type of Dwelling [facility]. Number of Floors (Floors) 0 Number of Stairs to Enter (Stairs) 0 Lives With: Spouse Physical Barriers in Home Environment Level, No Step Employment Status Retired Oriented Patient Orientation Person,Place,Time,Situation Patient Subjective Subjective Patient Subjective I am glad to be getting my shoulder replaced. Assessment Assessment Assessment Patient is a 77-year-old female referred to outpatient OT for a total shoulder pre-op . Surgery scheduled for . The patient lives with her spouse in [facility]. She reports spouse is a willing and able caregiver. She will also have support from adult daughter. Today, patient was educated on one handed dressing techniques, post op exercises, positioning , sling management and general questions. Both patient and daughter receptive to teaching and asked appropriate questions. Occupational Therapy Treatment Plan - OP Goals Goals Within 1 visit, the patient will... 1. verbalize and demonstrate understanding of donning and doffing sling. goal met 2. verbalize and demonstrate understanding of post op exercises. goal met. Progress met Treatment Plan Expected Frequency Comments Evaluation and one treat only. Certification Certification I Certify That: Therapy Services Provided, Therapy Plan Established, Therapy Plan Reviewed
--- NOTE | 2022-05-13 10:03 | PT.OPEX ---
PT [facility] Outpatient Eval PT [facility] Outpatient Eval Start: 05/13/22 07:16 Freq: Status: Active Protocol: Document 05/13/22 07:17 WILLARD (Rec: 05/13/22 10:03 WILLARD [id number]) E-signed By Gladys Berrios, PT Physical Therapy Outpatient Evaluation Insurance Information Recert Due Date 08/07/22 Insurance Name Medicare B Insurance Information/Comments [employer] Medical Diagnosis S/P left reverse TSA DOS 04/28 Encounter for other orthopedic aftercare Treating Diagnosis Left shoulder pain, limited shoulder ROM, impaired UE strength, swelling Referring MD Zamudio Subjective Subjective Isela reports to PT s/p 2 weeks left reverse TSA DOS by Dr. Zamudio. She has had ongoing shoulder pain and stiffness prior to this causing significant functional limitations. She presents with sling donned. She has weaned off oxycodone and only taking tylenol as needed. She had follow up with Orion Ferrara who is pleased with progress and incision healing. He administered tubigrip as she has had quite a bit of swelling throughout L UE however denies N/T or weakness distally. She would like to get additional tubigrip today. She has been consistently performing elbow, wrist and hand ROM. She has not been massaging as much as she feels she should (educated on this at follow up with Orion). Has follow up with Dr. Zamudio in 4 weeks. Until then she is only to perform elbow, wrist and hand AROM and sling donned . Pain Comments 07/18 Date of Last Physician Visit 05/09/22 Current Work Status Retired Precautions Treatment Precautions/Contraindications Sling donned x6 weeks Elbow, wrist and hand AROM x6 weeks Weight Bearing Status Non-Weight Bearing Objective Other/Pertinent Objective Shoulder PROM -flexion 65 -abd 25 -ER neutral Elbow AROM: 0-115 Wrist AROM: WNL Pastry Artist strength: strong and pain free Observation: incision covered with surgical glue, healing well and no signs/symptoms of infection Small amount of bruising anterior mid bicep Swelling: moderate amount throughout hand and forearm: reduces with manual therapy techniques today Sensation: intact to light touch throughout UE Functional Test Performed & Score QuidkDASH: 72 Assessment Assessment/Impression Pt presents with signs and symptoms consistent with s/p left reverse TSA. DOS: . Anticipated deficits/ impairments in pain, ROM, swelling and strength. Pt would benefit from skilled PT interventions to facilitate return to PLOF and performing all ADLs independently. Primary Functional Limitations Reaching, lifting, pressing, pulling, driving Plan of Care Rehabilitation Potential Good Physical Therapy Goals In 6 weeks (06/24/22) Improve FF PROM tolerance to at least 120 degrees in order to increase ease of ADL's / daily care upon d/c of sling in 6 weeks In 12 weeks (08/05/22) Pt will improve shoulder flexion to at least 140 degrees and ER 30 degrees in order to improve overhead reaching into cupboards and washing hair Patient will be independent in self-management of shoulder and shoulder related symptoms Pt will be able to lift up to 15lb below shoulder height in order to lift grocery bag and perform errands Patient will demonstrate at least 4/5 shoulder strength in order to progress through strengthening program and 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 Treatment Plan/Direct Interventions Ice/Cold/Vasopneumatic,Joint Mobilization,Manual Therapy, Neuromuscular Re-ed,Self-Care/ Home Management,Therapeutic Activities,Therapeutic Exercises Frequency/Duration 1x/wk for up to 12 weeks with reduction in frequency as able Patient Will Be Discharged From Therapy Completion of LTG(s), Independent w/HEP, Independently Progressing Evaluation Billing Untimed Code Treatment Minutes 20 Complexity Low Certification Information Initial Certification Date 05/13/22 Ending Certification Date 08/07/22 Provider Signature Shows Agreement With POC & Medical Necessity Physician Signature & Date Requested Please Sign/Date Here Physician Comment/Change : Physician NPI Number #
== END 2022-12-25 23:59 | disposition home or self-care (01) ==
PROVIDERS: PCP Family Medicine; Visit Provider Family Medicine
DX: M19.012 Primary osteoarthritis, left shoulder (principal); Z51.89 Encounter for other specified aftercare
CPT/HCPCS: 97110; 97140; 97161; 97165; 97535; X5282

== ENCOUNTER 2023-11-23 10:50 | Outpatient (CLI) | payer MEDICARE, BC, SELFPAY | END 2023-11-23 10:51 | disposition home or self-care (01) | PROVIDERS: PCP Family Medicine; Visit Provider Family Medicine | DX: I10 Essential (primary) hypertension (principal); E78.5 Hyperlipidemia, unspecified; E66.9 Obesity, unspecified; Z13.0 Encounter for screening for diseases of the blood and blood-forming organs and certain disorders involving the immune mechanism | CPT/HCPCS: 80048; 80061; 86140 ==

== ENCOUNTER 2024-08-01 14:45 | Outpatient (RCR) | payer MEDICARE, BC, SELFPAY ==
--- NOTE | 2024-05-13 14:32 | PT.OPEX ---
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 Her hips don't seem to be doing well. Has off and on LBP and can have times of numb feelings into her legs. Both of this sxs come and go. Pt retired about 5 years ago and does admit she has not been as active. She is wondering if this has led to her getting weak and causing her issues. Pt reports that she has not fallen. She uses her cane when she is out and about. Lives in [facility] with her . No stairs. [place] and needs to go up one step at a time with each foot rather than one foot per stair. Pain Comments -10/15 Current Work Status Retired Objective Other/Pertinent Objective Posture: forward lean. S shaped scoliosis. Trunk ROM: flex WNL, ext gatito dec, bilat SB mod dec, bilat rot gatito dec LE ROM WNL. Crepitus noted at bilat knees Sit to stand - needs help with hands, Sit <> supine independent Gait: amb with single end cane . forward trunk lean and bilat glute med gait pattern. MMT: Hip flex 4-/5 bilat, Hip ext 3+/5 bilat, Hip abd 4-/5 bilat, Knee flex/ext 4-/5 bilat Functional Test Performed & Score Tinetti Assessment Assessment/Impression Pt presents to the clinic with c/o feeling unsteady walking, LBP and intermittent paresthesia into bilat LEs. Pts signs and sxs suggest lumbar spine radiculopathy with underlying issues of scoliosis. Pt also demonstrates significant LE weakness, poor balance and high risk for falling as based on Tinetti balance score. Skilled PT is necessary to work on strength, mobility , balance and gait abilities. Primary Functional Limitations Transitional movements Standing Walking doctor of radiology Plan of Care Rehabilitation Potential Good Physical Therapy Goals 1. Pt will be independent with HEP in 10 weeks. 2. Pt will walk for grocery shopping trip with decreased pain and without need to lean into grocery cart in 10 weeks. 3. 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 Coordination/Communication With Referral Source Treatment Plan/Direct Interventions Gait Training,Manual Therapy, Neuromuscular Re-ed,Self-Care/ Home Management,Therapeutic Activities,Therapeutic Exercises Frequency/Duration 1-2x/wk for 12 weeks Patient Will Be Discharged From Therapy Completion of LTG(s),Skills Plateau,Independent w/HEP, Independently Progressing Evaluation Billing Untimed Code Treatment Minutes 45 Complexity Moderate Certification Information Initial Certification Date 05/13/24 Ending Certification Date 08/11/24 Provider Signature Required Yes Provider Signature Shows Agreement With POC & Medical Necessity Physician NPI Number Write NPI# Here Physician Comment/Change : Physician Signature & Date Requested Please Sign/Date Here
== END 2024-11-17 09:15 | disposition home or self-care (01) ==
PROVIDERS: PCP Family Medicine; Visit Provider Orthopaedic Surgery Sports Medicine
DX: M41.26 Other idiopathic scoliosis, lumbar region (principal); M54.10 Radiculopathy, site unspecified; M43.16 Spondylolisthesis, lumbar region; Z51.89 Encounter for other specified aftercare
CPT/HCPCS: 97110; 97112; 97116; 97162

== ENCOUNTER 2024-11-25 11:02 | Outpatient (CLI) | payer MEDICARE, BC, SELFPAY | END 2024-11-25 11:03 | disposition home or self-care (01) | PROVIDERS: PCP Family Medicine; Visit Provider Family Medicine | DX: E78.2 Mixed hyperlipidemia (principal); I10 Essential (primary) hypertension; R53.83 Other fatigue; Z79.899 Other long term (current) drug therapy | CPT/HCPCS: 80048; 80061; 82607; 84443 ==

== ENCOUNTER 2025-05-02 10:53 | Outpatient (CLI) | payer MEDICARE, BC, SELFPAY | END 2025-05-02 10:54 | disposition home or self-care (01) | LOC: NFLDREF 05-08 03:57 | PROVIDERS: PCP Family Medicine; Referring Provider Family Medicine; Visit Provider Physician Assistant | DX: N30.01 Acute cystitis with hematuria (principal) | CPT/HCPCS: 87086 ==

== ENCOUNTER 2025-05-30 14:50 | Outpatient (CLI) | payer MEDICARE, BC, SELFPAY | END 2025-05-30 14:51 | disposition home or self-care (01) | LOC: LKVREF 14:51 | PROVIDERS: PCP Family Medicine; Visit Provider Family Medicine | DX: N30.00 Acute cystitis without hematuria (principal); R39.89 Other symptoms and signs involving the genitourinary system | CPT/HCPCS: 87086 ==